=== PATIENT | female | born 1975 | race American Indian/Alaskan Native ===

== ENCOUNTER 2017-10-01 10:10 | Emergency (ER) | payer SELFPAY ==
[2017-10-01 10:47] VITALS: BP 115/60
[2017-10-01] MEDS ORDERED: TYLENOL PO ONE (14:36)
[2017-10-01] MEDS ORDERED: MOTRIN PO ONE (14:36)
--- NOTE | 2017-10-01 14:37 | Emergency Department Report ---
- General Chief Complaint: Sore Throat Stated Complaint: FLU LIKE SYMPTOMS Time Seen by Provider: 10/01/17 14:30 Source: patient, RN notes reviewed Mode of arrival: Ambulatory Limitations: No Limitations - History of Present Illness Initial Comments: This is a 41-year-old female who was previously unknown to this provider, she reports that she is not . Presents to the ER with 3-4 days of chest wall pain with coughing, nasal congestion, sensation of ear fullness. The chest wall pain is only present when she coughs, it does not radiate to the back , arms, neck, vomiting, there is no diaphoresis. There is no leg pain, there is no leg swelling, patient denies DVT and pulmonary embolus risk factors. MD Complaint: cough, sore throat, rhinorrhea, nasal congestion, sinus pain -: Gradual, days(s) (3) Severity: mild Quality: aching Consistency: constant Improves With: nothing Worsens With: nothing Context: sick contacts Associated Symptoms: rhinorrhea, nasal congestion, cough, chest pain. denies: fever, chills, myalgias, diaphoresis, stiff neck, shortness of breath, abdominal pain, nausea, vomiting, diarrhea, dysuria, rash, confusion, right sweats, weight loss, epistaxis, hoarseness, ear pain - Related Data Previous Rx's Medication Instructions Recorded Last Taken Type Acetaminophen [Tylenol Arthritis] 650 mg PO Q6HR PRN #30 tablet.er 10/01/17 Unknown Rx Albuterol Sulfate [Proair 90 mcg IH Q4HR PRN #2 [email or web address] 10/01/17 Unknown Rx Respiclick] Benzonatate [Tessalon Perles] 100 mg PO Q8HR PRN #30 capsule 10/01/17 Unknown Rx Fluticasone [Flonase] 1 spray NS QDAY #1 bottle 10/01/17 Unknown Rx Ibuprofen [Motrin] 600 mg PO Q8H PRN #30 tablet 10/01/17 Unknown Rx Allergies Allergy/AdvReac Type Severity Reaction Status Date / Time aspirin Allergy Unknown Verified 10/01/17 10:47 ED Review of Systems ROS: Stated complaint: FLU LIKE SYMPTOMS Other details as noted in HPI ED Past Medical Hx - Past Medical History Previous Medical History?: No - Medications Home Medications: Home Medications Medication Instructions Recorded Confirmed Last Taken Type Acetaminophen [Tylenol Arthritis] 650 mg PO Q6HR PRN #30 tablet.er 10/01/17 Unknown Rx Albuterol Sulfate [Proair 90 mcg IH Q4HR PRN #2 aer.[email or web address] 10/01/17 Unknown Rx Respiclick] Benzonatate [Tessalon Perles] 100 mg PO Q8HR PRN #30 capsule 10/01/17 Unknown Rx Fluticasone [Flonase] 1 spray NS QDAY #1 bottle 10/01/17 Unknown Rx Ibuprofen [Motrin] 600 mg PO Q8H PRN #30 tablet 10/01/17 Unknown Rx ED Physical Exam - General Limitations: No Limitations General appearance: alert, in no apparent distress - Head Head exam: Present: atraumatic, normocephalic - Eye Eye exam: Present: normal appearance, PERRL, EOMI. Absent: nystagmus - ENT ENT exam: Present: normal exam, normal orophraynx, mucous membranes moist, TM's normal bilaterally, normal external ear exam - Neck Neck exam: Present: normal inspection, full ROM - Respiratory Respiratory exam: Present: normal lung sounds bilaterally. Absent: respiratory distress - Cardiovascular Cardiovascular Exam: Present: regular rate, normal rhythm, normal heart sounds. Absent: systolic murmur, diastolic murmur, rubs, gallop - GI/Abdominal GI/Abdominal exam: Present: soft, normal bowel sounds. Absent: distended, tenderness, guarding, rebound, rigid, pulsatile mass - Extremities Exam Extremities exam: Present: normal inspection, full ROM, normal capillary refill. Absent: pedal edema, joint swelling, calf tenderness - Back Exam Back exam: Present: normal inspection, full ROM. Absent: tenderness, CVA tenderness (R), paraspinal tenderness, vertebral tenderness - Neurological Exam Neurological exam: Present: alert, oriented X3, CN II-XII intact, normal gait, other (Extraocular movements intact. Tongue midline. No facial droop. Facial sensation intact to light touch in the V1, V2, V3 distribution bilaterally. 5 and 5 strength in 4 extremities.. Sensation is intact to light touch in 4 extremities.). Absent: motor sensory deficit - Psychiatric Psychiatric exam: Present: normal affect, normal mood - Skin Skin exam: Present: warm, dry, intact, normal color. Absent: rash ED Course Vital Signs 10/01/17 10:43 Temperature 98.4 F Pulse Rate 85 Respiratory 16 Rate Blood Pressure 115/60 O2 Sat by Pulse 96 Oximetry - Reevaluation(s) Reevaluation #1: 10/01/17 15:08 Patient does not have anaphylactic reaction to aspirin or true allergy to aspirin; she reports her adverse effect is nasal bleeding. ED Medical Decision Making - EKG Data EKG shows normal: sinus rhythm, axis, intervals, QRS complexes, ST-T waves - EKG Data When compared to previous EKG there are: previous EKG unavailable - Radiology Data Radiology results: pending, image reviewed interpreted by me: X-ray the chest, interpreted by me: No acute disease - Medical Decision Making Differential diagnosis, including but not limited to: Costochondritis, bronchitis, upper respiratory tract infection, sinusitis Assessment and plan: 41-year-old female, with reproducible chest wall pain, cough, mucus production, sensation ear fullness, most likely upper respiratory tract infection. Patient afebrile with reassuring vital signs, clinically appears well, EKG unremarkable, chest x-ray unremarkable, patient will benefit from symptomatic therapy. Return precautions are reviewed. No pulmonary embolus or DVT risk factors, low risk by well's criteria, perc negative, based on the history and physical, I do not see a reason to obtain laboratory studies for acute coronary syndrome risk stratification. Critical care attestation.: If time is entered above; I have spent that time in minutes in the direct care of this critically ill patient, excluding procedure time. ED Disposition Clinical Impression: Upper respiratory tract infection Disposition: DC-01 TO HOME OR SELFCARE Is pt being admited?: No Does the pt Need Aspirin: No Condition: Stable Instructions: Upper Respiratory Infection (ED) Additional Instructions: Take medications as directed. Symptoms likely coming from cold/bronchitis/ viral syndrome. These typically do not require antibiotics. Symptoms will likely take symptoms 10 days to resolve. Follow-up with the primary care doctor within the next 2 weeks, return to the ER right away with fevers, chills, lethargy, irritability, projectile vomiting, change in mental status, confusion, inability to tolerate liquid feeds Referrals: [facility] [Primary Care Provider] - 3-5 Days [facility] [Provider Group] - 3-5 Days
--- NOTE | 2017-10-01 20:57 | XRay Report ---
FINAL REPORT EXAM: XR CHEST ROUTINE 2V HISTORY: cough and chest wall pain COMPARISON: None available. FINDINGS:: Frontal and lateral views of the chest obtained. Cardiac silhouette is within normal limits. The right lung apex, there is a small nodular density which could reflect a vessel on end measuring 4 millimeters. This projects over the anterior margin of the right 2nd rib. Lungs are otherwise clear. No focal consolidation or effusion. No pneumothorax. Visualized bony thorax is grossly intact. IMPRESSION:: 4 millimeter nodular density right lung apex which could reflect a prominent vessel on end. Short-term followup exam suggested to assess stability. Lungs otherwise clear.
== END 2017-10-01 15:21 | disposition home or self-care (01) ==
LOC: ED 10:10
DX: J06.9 Acute upper respiratory infection, unspecified (principal); Z88.6 Allergy status to analgesic agent
CPT/HCPCS: 71046; 93005; 93010